=== PATIENT | male | born 1970 | race Caucasian/White ===

== ENCOUNTER 2021-12-05 19:17 | Emergency (ER) | payer MEDICAID ==
[~2021-12-05] VITALS: Ht 177.8 cm; Wt 142.0 kg
[~2021-12-05 19:17] MED LIST: GABA-530 PO
[2021-12-05 19:22] VITALS: BP 157/88
--- NOTE | 2021-12-05 19:55 | NUR ---
lac cleaned and irr with 100ml nacl temp dressing applied until md dumont
[2021-12-05] MEDS ORDERED: LIDOcaine 1% w/EPI 1:100,000 30ml vial (MDV) IJ ONE (20:45)
[2021-12-05] MEDS ORDERED: bacitracin 15gm ointment TP ONE (20:45)
[2021-12-05] MEDS ORDERED: TETanus/Pertussis (Acell)/Diphther VAC/PF (Tdap-Adult) 0.5ml syringe IMVAC ONE (20:45)
--- NOTE | 2021-12-05 22:15 | NUR ---
DRESSING APPLIED TO LAC REPAIR
== END 2021-12-05 22:15 | disposition home or self-care (01) ==
LOC: ER 19:17
DX: S01.01XA Laceration without foreign body of scalp, initial encounter (principal); Z72.89 Other problems related to lifestyle; Z60.2 Problems related to living alone; X58.XXXA Exposure to other specified factors, initial encounter; Y93.89 Activity, other specified; Y92.89 Other specified places as the place of occurrence of the external cause; Y99.8 Other external cause status
CPT/HCPCS: 12002; 70450; 72125; 90715; 99284; A6449

== ENCOUNTER 2021-12-15 19:45 | Emergency (ER) | payer MEDICAID ==
[~2021-12-15] VITALS: Ht 180.3 cm; Wt 148.0 kg
[2021-12-15 19:49] VITALS: BP 172/70
--- NOTE | 2021-12-15 20:01 | NUR ---
at bedside for procedure
== END 2021-12-15 20:02 | disposition home or self-care (01) ==
LOC: ER 19:45
DX: S01.01XD Laceration without foreign body of scalp, subsequent encounter (principal); Z48.02 Encounter for removal of sutures; X58.XXXD Exposure to other specified factors, subsequent encounter
CPT/HCPCS: 99284